=== PATIENT | male | born 1975 | race Caucasian/White ===

== ENCOUNTER 2017-04-06 13:20 | Emergency (ER) | payer SELFPAY, OTHER ==
[2017-04-06] MEDS: IV NORMAL SALINE 1000ML BAG 1,000 ML IV ×6 (15:38→19:43)
[2017-04-06] MEDS: CLINDAMYCIN 900MG PREMIX 50 ML IV ×2 (15:39)
[2017-04-06] MEDS: DEXAMETHASONE SOD PHOS 20 MG/5 ML VIAL. IV ×2 (15:39)
[2017-04-06 15:45] LABS: BASO # 0.1 x10^3/uL (0.0-0.2); BASO % 0 % (0-3); EOS % 0 % (0-3); HEMATOCRIT 42.6 % (39.0-53.0); HEMOGLOBIN 14.2 g/dL (13.0-17.5); LYMPH # 1.4 x10^3/uL (1.0-4.8); LYMPH % 6 % (24-48); MEAN CORPUSCULAR HEMOGLOBIN 30 pg (25-35); MEAN CORPUSCULAR HGB CONC 33 g/dL (31-37); MEAN CORPUSCULAR VOLUME 89 fL (79-100); MONO # 2.6 x10^3/uL (0.0-1.1); MONO % 11 % (0-9); NEUT % 83 % (31-73); PLATELET COUNT 282 x10^3/uL (140-400); RED BLOOD COUNT 4.78 x10^6/uL (4.30-5.70); WHITE BLOOD COUNT 24.1 x10^3/uL (4.0-11.0)
[2017-04-06 15:47] LABS: ADD MAN DIFF? YES
[2017-04-06 16:12] LABS: ANION GAP 5 (6-14); BLOOD UREA NITROGEN 13 mg/dL (8-26); CALCIUM 9.2 mg/dL (8.5-10.1); CARBON DIOXIDE 33 mmol/L (21-32); CHLORIDE 96 mmol/L (98-107); CREATININE 1.1 mg/dL (0.7-1.3); GFR 73.8; GLUCOSE 106 mg/dL (70-99); POTASSIUM 4.5 mmol/L (3.5-5.1); SODIUM 134 mmol/L (136-145)
[2017-04-06] MEDS ORDERED: IOHEXOL 300 MG/ML 100ML VIAL. IV ×2 (16:45)
[2017-04-06 16:54] LABS: % BANDS 8 % (0-9); % LYMPHS 7 % (24-48); % MONOS 6 % (0-10); % SEGS 79 % (35-66); PLT ESTIMATE ADEQUATE (ADEQUATE)
[2017-04-06] MEDS ORDERED: CONTRAST GIVEN MC ×2 (17:00)
[2017-04-06 17:12] LABS: LACTIC ACID 0.9 mmol/L (0.4-2.0)
[2017-04-06] MEDS: ACETAMINOPHEN 650 MG/20.3 ML SOLUTION. PO ×2 (17:26)
[2017-04-06 20:14] LABS: PROCALCITONIN 0.19 ng/mL (0.00-0.10)
[2017-04-06] MEDS ORDERED: CLINDAMYCIN 900MG PREMIX 50 ML IV ×2 (22:00)
[2017-04-07] MEDS ORDERED: CLINDAMYCIN 900MG PREMIX 50 ML IV ×2
[2017-04-07 08:49] LABS: NEGATIVE OBC STREP NEG; POSITIVE OBC STREP POS
== END 2017-04-06 20:55 | disposition short-term general hospital (02) ==
LOC: ER 20:55
DX: J02.0 Streptococcal pharyngitis (principal); Z88.0 Allergy status to penicillin
CPT/HCPCS: 36415; 70491; 80048; 83605; 84145; 85007; 85025; 87040; 87880; 96361; 96365; 96375; 99285-25; J1100; J3490; J7030